=== PATIENT | male | born 1975 | race Caucasian/White ===

== ENCOUNTER 2018-11-29 22:08 | Inpatient (IN) | payer OTHER ==
[~2018-11-29] VITALS: Ht 182.9 cm; Wt 85.7 kg
[~2018-11-29 22:08] MED LIST: DILT180C73 PO; OMEP-218 PO; TRAZ50TA34 PO
[2018-11-29] MEDS ORDERED: NS(*) 0.9% 1000 ML BAG 1,000 ML IV ONE (22:19)
[2018-11-29] MEDS ORDERED: ONDANSETRON 4 MG/2 ML VIAL IVP ONE (22:20)
[2018-11-29] MEDS ORDERED: KETOROLAC 30 MG/ML VIAL IVP ONE (22:40)
[2018-11-29] MEDS ORDERED: fentaNYL CITR 100 MCG/2 ML AMP IVP ONE (22:40)
--- NOTE | 2018-11-29 22:43 | ER Report ---
History and Physical Time Seen By MD: 22:31 Hx. of Stated Complaint: ABDOMINAL PAIN THAT STARTED YESTERDAY, TODAY AT 0300 HE HAD DIARRHEA, HAS NOT PASSED GAS NOR HAD A BOWEL MOVEMENT SINCE THEN; SHARP CRAMPING IN ABD. AND LOWER RIGHT SIDED BACK/FLANK PAIN HPI/ROS CHIEF COMPLAINT: Vomiting and diarrhea HISTORY OF PRESENT ILLNESS: 43-year-old male presents with vomiting and diarrhea. He states he ate in [place]. Yesterday he began to have diarrhea last night. He got up this morning and had a cup coffee and then developed severe right upper quadrant cramping and pain to his back. He had several episodes of vomiting. He's been having continued cramping all day long. He's not had any more diarrhea. No fever or chills. Patient has no previous history of abdominal surgery. REVIEW OF SYSTEMS: Respiratory: No cough, no dyspnea. Cardiovascular: No chest pain, no palpitations. Gastrointestinal: As above Musculoskeletal: As above Allergies: Coded Allergies: No Known Drug Allergies (Unverified , 07/16/15) Home Meds Reported Medications Sertraline Hcl (ZOLOFT) 50 Mg Tablet, 1 TAB PO QDAY, TAB 11/30/18 Omeprazole Magnesium (PRILOSEC OTC) 20 Mg Tablet.dr, 2 TAB PO QDAY, TAB 03/01/15 Discontinued Scripts Diltiazem Hcl (DILTIAZEM 24HR ER) 180 Mg Cap.er.24h, 180 MG PO DAILY, #30 CAP.SR.24H Prov:LAQUITA LAWSON 07/16/15 Trazodone Hcl (TRAZODONE HCL) 50 Mg Tablet, 25 MG PO QHS, #10 TAB Prov:LAQUITA LAWSON 07/16/15 Hx Smoking: No Smoking Status: Never Smoker Hx Substance Use Disorder: No Hx Alcohol Use: Yes (5 DRINK 5-6 DAYS A WEEK) Constitutional Vital Sign - Last 24 Hours 11/29/18 11/29/18 11/29/18 11/29/18 22:30 22:31 22:38 22:42 Temp 98.2 Pulse 71 58 Resp 17 B/P (MAP) 132/95 (107) 132/95 119/88 (98) Pulse Ox 93 90 O2 Delivery Room Air 11/29/18 11/29/18 11/29/18 11/29/18 22:58 23:00 23:08 23:30 Pulse 52 B/P (MAP) 129/81 (97) 129/81 (97) Pulse Ox 98 O2 Flow Rate 2.0 11/29/18 11/30/18 11/30/18 11/30/18 23:38 00:00 00:08 00:30 Pulse 69 62 B/P (MAP) 135/83 (100) 126/80 (95) Pulse Ox 97 98 11/30/18 11/30/18 11/30/18 11/30/18 00:38 00:43 01:00 01:30 Pulse 65 58 B/P (MAP) 126/83 (97) 127/84 (98) Pulse Ox 96 96 11/30/18 11/30/18 02:00 02:13 Pulse 53 B/P (MAP) 124/87 (99) Pulse Ox 97 Physical Exam General Appearance: The patient is alert, has no immediate need for airway protection and no current signs of toxicity. Vital signs stable, afebrile HEENT: Pupils equal and round no injection. TMs normal, oropharynx without redness or exudate, mucous members are moist Respiratory: Chest is non tender, lungs are clear to auscultation. Cardiac: regular rate and rhythm Gastrointestinal: Abdomen is soft. Mild left upper quadrant tenderness, no rebound or guarding, no Rivera sign, no masses, bowel sounds normal. Musculoskeletal: Neck: Neck is supple and non tender. No lymphadenopathy Extremities have full range of motion and are non tender. Skin: No rashes or lesions. DIFFERENTIAL DIAGNOSIS: After history and physical exam differential diagnosis was considered for abdominal pain including but not limited to appendicitis, cholecystitis, gastroenteritis, food poisoning, viral syndrome gastritis and urinary tract infection. Additionally, flank pain including but not limited to musculoskeletal causes, kidney stone, pyelonephritis, shingles, and intra- abdominal causes such as diverticulitis and appendicitis. Medical Decision Making Data Points Result Diagram: 12/01/18 0502 12/01/18 0502 Laboratory Hematology Test 11/29/18 22:27 11/29/18 22:46 Urine Color Yellow Urine Clarity Clear Urine pH 6.0 pH (4.8-9.5) Urine Specific [place] 1.019 Urine Protein Negative mg/dL (NEGATIVE) Urine Glucose (UA) Negative mg/dL (NEGATIVE) Urine Ketones Trace mg/dL (NEGATIVE) Urine Blood Negative (NEGATIVE) Urine Nitrite Negative (NEGATIVE) Urine Bilirubin Negative (NEGATIVE) Urine Urobilinogen 2.0 mg/dL (0.2-1.9) Urine Leukocyte Esterase Negative (NEGATIVE) Urine RBC 1 /HPF (0-2/HPF) Urine WBC <1 /HPF (0-5/HPF) Urine Squamous Epithelial Cells None /LPF (</=FEW) Urine Bacteria Negative /HPF (NONE-FEW) Urine Mucus None /HPF (NONE-FEW) Amylase Level 820 U/L (0-110) Chemistry Test 11/29/18 22:27 11/29/18 22:46 Urine Color Yellow Urine Clarity Clear Urine pH 6.0 pH (4.8-9.5) Urine Specific [place] 1.019 Urine Protein Negative mg/dL (NEGATIVE) Urine Glucose (UA) Negative mg/dL (NEGATIVE) Urine Ketones Trace mg/dL (NEGATIVE) Urine Blood Negative (NEGATIVE) Urine Nitrite Negative (NEGATIVE) Urine Bilirubin Negative (NEGATIVE) Urine Urobilinogen 2.0 mg/dL (0.2-1.9) Urine Leukocyte Esterase Negative (NEGATIVE) Urine RBC 1 /HPF (0-2/HPF) Urine WBC <1 /HPF (0-5/HPF) Urine Squamous Epithelial Cells None /LPF (</=FEW) Urine Bacteria Negative /HPF (NONE-FEW) Urine Mucus None /HPF (NONE-FEW) Amylase Level 820 U/L (0-110) Urinalysis Test 11/29/18 22:27 Urine Color Yellow Urine Clarity Clear Urine pH 6.0 pH (4.8-9.5) Urine Specific [place] 1.019 Urine Protein Negative mg/dL (NEGATIVE) Urine Glucose (UA) Negative mg/dL (NEGATIVE) Urine Ketones Trace mg/dL (NEGATIVE) Urine Blood Negative (NEGATIVE) Urine Nitrite Negative (NEGATIVE) Urine Bilirubin Negative (NEGATIVE) Urine Urobilinogen 2.0 mg/dL (0.2-1.9) Urine Leukocyte Esterase Negative (NEGATIVE) Urine RBC 1 /HPF (0-2/HPF) Urine WBC <1 /HPF (0-5/HPF) Urine Squamous Epithelial Cells None /LPF (</=FEW) Urine Bacteria Negative /HPF (NONE-FEW) Urine Mucus None /HPF (NONE-FEW) EKG/Imaging Imaging Results: CT scan of the abdomen and pelvis with IV contrast was obtained. The results of the study are INDICATION: Abdominal pain, elevated lipase. COMPARISON: None. TECHNIQUE: Contrast enhanced abdomen and pelvis CT performed during the injection of 75 ml of Isovue 370. Sagittal and coronal reconstructions were performed. One of the following dose optimization techniques was utilized in the performance of this exam: Automated exposure control; adjustment of the mA a nd/or kV according to the patient's size; or use of an iterative reconstruction technique. Specific details can be referenced in the facility's radiology CT exam operational policy. FINDINGS: Lung bases: Clear. Liver and hepatic vasculature: Parenchyma is geographically hypoattenuating. No suspicious focal lesion. Gallbladder and bile ducts: Unremarkable. Spleen: Normal. Pancreas: The head and uncinate process appear heterogeneous, and there is a moderate amount of peripancreatic inflammation as well as fluid extending inferiorly along the retroperitoneum. The pancreatic body and tail appear grossly normal. No well-demonstrated suspicious focal lesion. Adjacent vasculature appears patent. Adrenals: Normal. Kidneys, ureters and bladder: Probable tiny cyst in the medial aspect of the left kidney on image 58 series 2. No hydronephrosis or hydroureter. Question urinary bladder wall thickening. Retroperitoneum and aorta: Nonaneurysmal aorta. Fluid extending inferiorly from the pancreas along the retroperitoneum. No adenopathy GI tract, mesentery and peritoneum: The duodenum appears inflamed adjacent to the pancreas. No evidence of obstruction. No pneumatosis or pneumoperitoneum. Prostate and seminal vesicles: Normal. Bones and soft tissues: No acute abnormality or suspicious lesion. Transitional lumbosacral vertebra. IMPRESSION: 1. Suspected pancreatitis involving the pancreatic head and uncinate process. No well-demonstrated focal lesion. There is inflammation of the adjacent duodenum that is likely reactive, though primary duodenitis is not excluded. 2. Question urinary bladder wall thickening, correlate with urinalysis. 3. Suspected hepatic steatosis. The study was read by the radiologist. I viewed the images myself on the PACS system. Results: Ultrasound of the gallbladder ultrasound was obtained. The results of the study are GALLBLADDER HISTORY: Pancreatitis. Evaluate for gallstone. COMPARISON: No prior ultrasound. There is a CT of the abdomen and pelvis from 11/29/2018. FINDINGS: Pancreas: Edematous. The peripancreatic fluid identified on CT is less well-visualized on ultrasound. Upper abdominal aorta and IVC: Aorta and IVC are patent by color Doppler and are unremarkable. Proximal aorta is 2.1 cm in cross-section. Liver: The liver is heterogeneously echogenic, compatible with geographic hepatic steatosis. The portal vein is patent with normal hepatopetal flow. Hepatic vein is patent. Gallbladder: No stones, wall thickening, or pericholecystic fluid. Negative sonographic Rivera sign. Common duct: Normal, measuring 5 mm. Right kidney: Normal in size and echogenicity. It measures 10.4 x 5.1 x 5.6 cm. No hydronephrosis. Resistive index is normal, measuring 0.5. Ascites: None. IMPRESSION: 1. Edematous pancreas, compatible with pancreatitis. 2. Normal gallbladder. 3. Hepatic steatosis. It can progress to steatohepatitis and eventual cirrhosis. The study was read by the radiologist. I viewed the images myself on the PACS system. ED Course/Re-evaluation Clinical Indication for ER IV: Hydration, IV Access ED Course Patient was admitted to an examination room. H&P was done. The differential diagnoses was considered. Patient with abdominal pain and right flank pain. Diagnostic evaluation was undertaken. Patient was treated with IV fluid hydration, Zofran, fentanyl, Toradol. Diagnostic studies returned with an elevated lipase of 4500. A CT scan of the abdomen and pelvis was performed. Patient will be admitted to medical service to monitor his lipase. 11/30/2018 12:35:39 am case discussed with Dr. Teo Dee hospitalist on- call Decision to Disposition Date: Nov 29, 2018 Decision to Disposition Time: 23:51 Depart Departure Latest Vital Signs Vital Signs Date Time Temp Pulse Resp B/P (MAP) Pulse Ox O2 Delivery O2 Flow Rate FiO2 11/30/18 02:13 53 97 11/30/18 02:00 124/87 (99) 11/29/18 22:58 2.0 11/29/18 22:31 98.2 17 Room Air Impression: Primary Impression: Pancreatitis Condition: Improved Disposition: Admitted from ER Referrals: MARLA PATEL DO (PCP) Problem Qualifiers Primary Impression: Pancreatitis Chronicity: acute Pancreatitis type: unspecified pancreatitis type Acute pancreatitis complication: no infection or necrosis Qualified Codes: K85.90 - Acute pancreatitis without necrosis or infection, unspecified NIMA KNOX DO Nov 29, 2018 22:42
[2018-11-29 22:57] LABS: PLATELET COUNT, AUTOMATED 271 K/uL (150-450)
[2018-11-29] MEDS ORDERED: IOPAMIDOL 76% 150 ML INFUS BTL 150 ML ONE (23:51)
[2018-11-30] VITALS (7 sets, daily range): BP systolic 122–149; BP diastolic 78–93; Ht 182.9 cm; Wt 85.7 kg
--- NOTE | 2018-11-30 00:25 | RADIOLOGY IMAGING REPORT ---
[facility] PATIENT NAME: Pete De Santiago : 1975 MR: [id number] V: [id number] EXAM DATE: [id number] ORDERING PHYSICIAN: NIMA KNOX TECHNOLOGIST: Location: [facility] - [place] Patient: Pete De Santiago : 1975 Visit/Account:[id number] Date of Sevice: 11/29/2018 COMPUTED TOMOGRAPHY ABDOMEN AND PELVIS WITH INTRAVENOUS CONTRAST DATE OF EXAM: 11/29/2018 11:37 PM INDICATION: Abdominal pain, elevated lipase. COMPARISON: None. TECHNIQUE: Contrast enhanced abdomen and pelvis CT performed during the injection of 75 ml of Isovue 370. Sagittal and coronal reconstructions were performed. One of the following dose optimization te chniques was utilized in the performance of this exam: Automated exposure control; adjustment of the mA and/or kV according to the patient's size; or use of an iterative reconstruction technique. Spec [facility] details can be referenced in the facility's radiology CT exam operational policy. FINDINGS: Lung bases: Clear. Liver and hepatic vasculature: Parenchyma is geographically hypoattenuating. No suspicious focal le coral. Gallbladder and bile ducts: Unremarkable. Spleen: Normal. Pancreas: The head and uncinate process appear heterogeneous, and there is a moderate amount of marilyn pancreatic inflammation as well as fluid extending inferiorly along the retroperitoneum. The pancrea tic body and tail appear grossly normal. No well-demonstrated suspicious focal lesion. Adjacent vas culature appears patent. Adrenals: Normal. Kidneys, ureters and bladder: Probable tiny cyst in the medial aspect of the left kidney on image 58 series 2. No hydronephrosis or hydroureter. Question urinary bladder wall thickening. Retroperitoneum and aorta: Nonaneurysmal aorta. Fluid extending inferiorly from the pancreas along the retroperitoneum. No adenopathy GI tract, mesentery and peritoneum: The duodenum appears inflamed adjacent to the pancreas. No evid ence of obstruction. No pneumatosis or pneumoperitoneum. Prostate and seminal vesicles: Normal. Bones and soft tissues: No acute abnormality or suspicious lesion. Transitional lumbosacral vertebr a. IMPRESSION: 1. Suspected pancreatitis involving the pancreatic head and uncinate process. No well-demonstrated focal lesion. There is inflammation of the adjacent duodenum that is likely reactive, though primary duodenitis is not excluded. 2. Question urinary bladder wall thickening, correlate with urinalysis. 3. Suspected hepatic steatosis. Report Dictated By: Wilbert Pastrana MD at 11/30/2018 12:10 AM Report E-Signed By: Wilbert Pastrana MD at 11/30/2018 12:21 AM WSN:[id number]
--- NOTE | 2018-11-30 01:47 | RADIOLOGY IMAGING REPORT ---
FACILITY: [facility] - [place] PATIENT NAME: Pete De Santiago : 1975 MR: [id number] V: [id number] EXAM DATE: ORDERING PHYSICIAN: NIMA KNOX TECHNOLOGIST: [place] [facility] [place]: Pete De Santiago : 1975 Visit/Account:[id number] Date of Sevice: 11/30/2018 GALLBLADDER HISTORY: Pancreatitis. Evaluate for gallstone. COMPARISON: No prior ultrasound. There is a CT of the abdomen and pelvis from 11/29/2018. FINDINGS: Pancreas: Edematous. The peripancreatic fluid identified on CT is less well-visualized on ultrasound. Upper abdominal aorta and IVC: Aorta and IVC are patent by color Doppler and are unremarkable. Proxim al aorta is 2.1 cm in cross-section. Liver: The liver is heterogeneously echogenic, compatible with geographic hepatic steatosis. The port al vein is patent with normal hepatopetal flow. Hepatic vein is patent. Gallbladder: No stones, wall thickening, or pericholecystic fluid. Negative sonographic Rivera sign. Common duct: Normal, measuring 5 mm. Right kidney: Normal in size and echogenicity. It measures 10.4 x 5.1 x 5.6 cm. No hydronephrosis. Re sistive index is normal, measuring 0.5. Ascites: None. IMPRESSION: 1. Edematous pancreas, compatible with pancreatitis. 2. Normal gallbladder. 3. Hepatic steatosis. It can progress to steatohepatitis and eventual cirrhosis. Report Dictated By: Precious Franklin at 11/30/2018 1:39 AM Report E-Signed By: Precious Franklin at 11/30/2018 1:44 AM WSN:[id number]
[2018-11-30] MEDS ORDERED: PROMETHAZINE 25 MG/ML 1 ML AMP IVP PRN (02:50)
[2018-11-30] MEDS ORDERED: MORPHINE 1 MG/ML 30 ML PCA IV PRN (02:50)
[2018-11-30] MEDS ORDERED: NALOXONE HCL 0.4 MG/ML VIAL IVP PRN (02:50)
[2018-11-30] MEDS ORDERED: SERT-1 PO (02:55)
[2018-11-30] MEDS: NS(*) 0.9% 1000 ML BAG 1,000 ML IV PRN ×3 (03:01→20:36)
--- NOTE | 2018-11-30 03:11 | History & Physical ---
History of Present Illness Chief Complaint Abdominal pain History of Present Illness 43yo male with PMHx significant for GERD and anxiety. He reports onset of some epigastric and RUQ pain begin approximately 24 hours before admission. He describes it as "crampy" pain. He had some associated nausea with vomiting early, but has now resolved. He also had a couple of loose/diarrheal (nonbloody/non-mucousy) stools which has also resolved. He had some low grade fever as well. No rashes. No urinary complaints. He had been drinking beer the night before (upwards of 6). He was evaluated in the ER and found to have evidence of acute pancreatitis on CT scan. His lipase was elevated to approximately 4500. He was recommended for admission. History Problems: (1) Anxiety Status: Chronic (2) GERD (gastroesophageal reflux disease) Status: Chronic Home Meds Reported Medications Sertraline Hcl (ZOLOFT) 50 Mg Tablet, 1 TAB PO QDAY, TAB 11/30/18 Omeprazole Magnesium (PRILOSEC OTC) 20 Mg Tablet.dr, 1 TAB PO BID, TAB 03/01/15 Discontinued Scripts Diltiazem Hcl (DILTIAZEM 24HR ER) 180 Mg Cap.er.24h, 180 MG PO DAILY, #30 CAP.SR.24H Prov:LAQUITA LAWSON [facility] 07/16/15 Trazodone Hcl (TRAZODONE HCL) 50 Mg Tablet, 25 MG PO QHS, #10 TAB Prov:LAQUITA LAWSON [facility] 07/16/15 Allergies: Coded Allergies: No Known Drug Allergies (Unverified , 07/16/15) Other Social/Family Hx He is and lives in [place]. He reports his primary relatives are healthy with no significant medical problems. Hx Smoking: No Smoking Status: Never Smoker Hx Alcohol Use: Yes (5 DRINK 5-6 DAYS A WEEK) Alcohol Used: Beer Review of Systems Constitutional: Fever Cardiovascular: No Chest Pain, No Palpitations Respiratory: No Shortness of Breath Gastrointestinal: Nausea, Vomiting, Diarrhea; No Hematemesis, No Hematochezia, No Melena; Abdominal Pain Genitourinary: No Dysuria, No Hematuria Musculoskeletal: No Impaired Mobility Psychiatric: Anxiety Exam Vital Signs Vital Signs Date Time Temp Pulse Resp B/P (MAP) Pulse Ox O2 Delivery O2 Flow Rate FiO2 11/30/18 02:43 56 97 11/30/18 02:30 140/92 (108) 11/29/18 22:58 2.0 11/29/18 22:31 98.2 17 Room Air General Appearance: Alert, Awake Neuro: No Gross deficits Eyes: PERRLA ENT: Oropharynx Clear Neck: No Masses Cardiovascular: Regular Rate and Rhythm, No Edema, No JVD Respiratory: Clear to Auscultation Chest: No Tenderness GI: Other (Fairly soft with some tenderness reported diffusely with palpation/BS persent/no masses or organomegally noted) : No CVA Tenderness Lymph: No Adenopathy Extremities: Warm, Perfused Integumentary: Skin Intact without Lesion / Mass Psych: Alert & Oriented X3 Medical Decision Making Data Points Result Diagram: 11/29/18224511/29/182245 Item Value Date Time Lipase 4555 U/L H 11/29/182245 Amylase Level 820 U/L H 11/29/182245 Albumin 5.1 g/dl H 11/29/18 2246 Total Protein 8.5 g/dl H 11/29/18 2246 Alkaline Phosphatase 67 U/L 11/29/18 2246 Alanine Aminotransferase (ALT/SGPT) 50 U/L 11/29/18 2246 Aspartate Amino Transf (AST/SGOT) 41 U/L H 11/29/18 2246 Total Bilirubin 1.1 mg/dl 11/29/18 2246 Calcium Level 9.9 mg/dl 11/29/18 2246 Urine Mucus None /HPF 11/29/182226 Urine Bacteria Negative /HPF 11/29/182226 Urine Squamous Epithelial Cells None /LPF 11/29/182226 Urine WBC <1 /HPF 11/29/187 Urine RBC 1 /HPF 11/29/18 222 Urine Leukocyte Esterase Negative 11/29/182226 Urine Urobilinogen 2.0 mg/dL 11/29/182226 Urine Bilirubin Negative 11/29/182226 Urine Nitrite Negative 11/29/182226 Urine Blood Negative 11/29/182226 Urine Ketones Trace mg/dL 11/29/182226 Urine Glucose (UA) Negative mg/dL 11/29/182226 Urine Protein Negative mg/dL 11/29/182226 Urine Specific [place] 1.019 11/29/182226 Urine pH 6.0 pH 11/29/182226 Urine Clarity Clear 11/29/182226 Urine Color Yellow 11/29/182226 EKG / Imaging Imaging PATIENT NAME: Pete De Santiago : 1975 MR: [id number] V: [id number] EXAM DATE: [id number] ORDERING PHYSICIAN: NIMA KNOX TECHNOLOGIST: Location: [facility] - [place], [place] Patient: Pete De Santiago : 1975 Visit/Account:[id number] Date of Sevice: 11/30/2018 GALLBLADDER HISTORY: Pancreatitis. Evaluate for gallstone. COMPARISON: No prior ultrasound. There is a CT of the abdomen and pelvis from 11/29/2018. FINDINGS: Pancreas: Edematous. The peripancreatic fluid identified on CT is less well- visualized on ultrasound. Upper abdominal aorta and IVC: Aorta and IVC are patent by color Doppler and are unremarkable. Proximal aorta is 2.1 cm in cross-section. Liver: The liver is heterogeneously echogenic, compatible with geographic hepatic steatosis. The portal vein is patent with normal hepatopetal flow. Hepatic vein is patent. Gallbladder: No stones, wall thickening, or pericholecystic fluid. Negative sonographic Rivera sign. Common duct: Normal, measuring 5 mm. Right kidney: Normal in size and echogenicity. It measures 10.4 x 5.1 x 5.6 cm. No hydronephrosis. Resistive index is normal, measuring 0.5. Ascites: None. IMPRESSION: 1. Edematous pancreas, compatible with pancreatitis. 2. Normal gallbladder. 3. Hepatic steatosis. It can progress to steatohepatitis and eventual cirrhosis. Report Dictated By: Precious Franklin at 11/30/2018 1:39 AM Report E-Signed By: Precious Franklin at 11/30/2018 1:44 AM WSN:[id number] PATIENT NAME: Pete De Santiago : 1975 MR: [id number] V: [id number] EXAM DATE: [id number] ORDERING PHYSICIAN: NIMA KNOX TECHNOLOGIST: Location: [facility] - [place], [place] Patient: Pete De Santiago : 1975 Visit/Account:[id number] Date of Sevice: 11/29/2018 COMPUTED TOMOGRAPHY ABDOMEN AND PELVIS WITH INTRAVENOUS CONTRAST DATE OF EXAM: 11/29/2018 11:37 PM INDICATION: Abdominal pain, elevated lipase. COMPARISON: None. TECHNIQUE: Contrast enhanced abdomen and pelvis CT performed during the injection of 75 ml of Isovue 370. Sagittal and coronal reconstructions were performed. One of the following dose optimization techniques was utilized in the performance of this exam: Automated exposure control; adjustment of the mA and/or kV according to the patient's size; or use of an iterative reconstruction technique. Specific details can be referenced in the facility's radiology CT exam operational policy. FINDINGS: Lung bases: Clear. Liver and hepatic vasculature: Parenchyma is geographically hypoattenuating. No suspicious focal lesion. Gallbladder and bile ducts: Unremarkable. Spleen: Normal. Pancreas: The head and uncinate process appear heterogeneous, and there is a moderate amount of peripancreatic inflammation as well as fluid extending inferiorly along the retroperitoneum. The pancreatic body and tail appear grossly normal. No well-demonstrated suspicious focal lesion. Adjacent vasculature appears patent. Adrenals: Normal. Kidneys, ureters and bladder: Probable tiny cyst in the medial aspect of the left kidney on image 58 series 2. No hydronephrosis or hydroureter. Question urinary bladder wall thickening. Retroperitoneum and aorta: Nonaneurysmal aorta. Fluid extending inferiorly from the pancreas along the retroperitoneum. No adenopathy GI tract, mesentery and peritoneum: The duodenum appears inflamed adjacent to the pancreas. No evidence of obstruction. No pneumatosis or pneumoperitoneum. Prostate and seminal vesicles: Normal. Bones and soft tissues: No acute abnormality or suspicious lesion. Transitional lumbosacral vertebra. IMPRESSION: 1. Suspected pancreatitis involving the pancreatic head and uncinate process. No well-demonstrated focal lesion. There is inflammation of the adjacent duodenum that is likely reactive, though primary duodenitis is not excluded. 2. Question urinary bladder wall thickening, correlate with urinalysis. 3. Suspected hepatic steatosis. Report Dictated By: Wilbert Pastrana MD at 11/30/2018 12:10 AM Report E-Signed By: Wilbert Pastrana MD at 11/30/2018 12:21 AM WSN:[id number] Assessment and Plan Problems: (1) Acute pancreatitis Status: Acute Assessment & Plan: Most likely due to alcohol. Will admit and place his gut at rest - NPO. Will give generous IV fluids. Will place on IV analgesics and antiemetics as needed. Will watch closely and modify therapy if needed. (2) GERD (gastroesophageal reflux disease) Status: Chronic Assessment & Plan: Will continue on PPI therapy with IV Protonix (at least initially). (3) Anxiety Status: Chronic Assessment & Plan: Will need to hold his sertraline for now. Copies to: MARLA PATEL DO ; Venous Thromboembolism Antithrombotics Is Pt On Any Antithrombotics?: Yes Exam Sepsis Risk: No Definite Risk HONG CARNES MD Nov 30, 2018 03:11
[2018-11-30] MEDS ORDERED: PCA LOCKBOX KEYS XX ONE ×2 (03:19→21:42)
[2018-11-30] MEDS: MORPHINE 1 MG/ML 30 ML PCA IV PRN ×2 (03:39→21:48)
[2018-11-30 06:27] LABS: PLATELET COUNT, AUTOMATED 216 K/uL (150-450)
[2018-11-30] MEDS: PANTOPRAZOLE SOD 40 MG IV VIAL IVP SCH (09:29)
[2018-11-30] MEDS: ENOXAPARIN 40 MG/0.4ML SYR SC SCH (09:29)
--- NOTE | 2018-11-30 10:54 | Hospitalist Progress Note ---
Subjective Progress Notes Subjective He was admitted with acute pancreatitis. He does have complaints of abdominal cramping. Patient Complains of: Cardiovascular: No: Chest Pain Respiratory: No: Shortness of Breath Physical Exam Vital Signs Date Time Temp Pulse Resp B/P (MAP) Pulse Ox O2 Delivery O2 Flow Rate FiO2 11/30/18 07:03 98.6 56 16 127/83 (98) 89 Room Air 11/29/18 22:58 2.0 General Appearance: Alert, Awake, No Acute Distress, Afebrile Neuro: No Gross deficits Cardiovascular: Regular Rate and Rhythm Respiratory: No Respiratory Distress, Clear to Auscultation GI: Other (pain to palpation) Extremities: Warm, Perfused; No Edema Psych: Alert & Oriented X3, Appropriate Mood & Affect Result Diagram: 11/30/1860611/30/18606 Assessment and Plan Problems: (1) Acute pancreatitis Status: Acute Assessment & Plan: Most likely due to alcohol. Will admit and place his gut at rest - NPO. Will give IV fluids. Will place on IV analgesics and antiemetics as needed. Will watch closely and modify therapy if needed. Lipase reduced since admission, recheck tomorrow. (2) GERD (gastroesophageal reflux disease) Status: Chronic Assessment & Plan: Will continue on PPI therapy with IV Protonix (at least initially). (3) Anxiety Status: Chronic Assessment & Plan: Will need to hold his sertraline for now. He is concerned about withdraw. He will likely resume this afternoon. Exam Sepsis Risk: No Definite Risk VIKAS ATKINSP Nov 30, 2018 10:54
--- NOTE | 2018-11-30 14:37 | Medical Nutrition Therapy ---
Nutrition Anthropometrics Height (Inches): 72.00 Height (Calculated Centimeters: [phone] Weight (Pounds): 189 Weight (Calculated Kilograms): 85.746 BMI: 25.6 Chung Nutrition Score: Probably Inadequate Chung Nutrition Risk Score: 21 Dietary Referral Nutrition Risk Factors: Nutrition Risk Comment: Physical Findings Physical Appearance: Overweight BMI 25-29 Skin Appearance Skin Appearance: Edema Edema Location Modifier: Edema Location: Type of Edema: Degree of Edema: Gastrointestinal Symptoms GI Symtoms: Nausea, Vomiting, Diarrhea Tube Present: Bowel Sounds: Recent Bowel Pattern: Diarrhea Stool Characteristics: Nutritional Diagnosis Nutritional Risk Acuity 2: Pancreatitis Nutritional Risk Acuity 3: GERD Past Medical History: GERD, anxiety Nutritional Acuity: 2-Moderate Nutrition Diagnosis: Inadequate Food Intake Nutrition Etiology: Physiological Causes Nutrition Problem/Etiology/Sym: Inadeuqate meal intake related to physiological causes as evidence by NPO diet day 1. Energy Requirement: 2364 (MSJ, 1.1 TEF, 1.2 AF) Protein Requirement: 86 (1 g AA/kg of BW) Fluid Requirement: 2364 (1ml/kcal) Diet Type: NPO (Nothing by Mouth) Nutrition Intervention: Incr diet as tolerated Nutritional Needs Comment: 11/02: NPO day 1 Nutrition Monitoring & Eval RD Patient Assessment Time: [address] Assessment Type: RD Assessment Patient Nutrition Acuity: 2-Moderate Follow Up Date: Dec 03, 2018 Nutritional Comment: 11/30: Pt admitted for acute pancreatitis and GERD. Pt has hx of GERD and depression. Pt is currently taking enoxaparin. Pt has elevated total bilirubin (1.4), lipase (5535-7880), and amylase (820). Pt is NPO day 1. Continue to monitor. -KIRSTIE [place] Nov 30, 2018 10:52
[2018-11-30] MEDS ORDERED: SERTRALINE HCL 50 MG TAB PO SCH (18:30)
[2018-12-01 03:14] VITALS: BP 126/82
[2018-12-01 05:54] LABS: PLATELET COUNT, AUTOMATED 189 K/uL (150-450)
[2018-12-01] MEDS: NS(*) 0.9% 1000 ML BAG 1,000 ML IV PRN (06:34)
[2018-12-01 07:20] VITALS: BP 127/75
[2018-12-01] MEDS: ENOXAPARIN 40 MG/0.4ML SYR SC SCH (08:52)
[2018-12-01] MEDS: PANTOPRAZOLE SOD 40 MG IV VIAL IVP SCH (08:52)
--- NOTE | 2018-12-01 10:10 | Hospitalist Progress Note ---
Subjective Progress Notes Subjective He was admitted with acute pancreatitis. His lipase levels have reduced this morning. He reports only minimal abdominal cramping, much improvement since yesterday. Patient Complains of: Respiratory: No: Shortness of Breath Physical Exam Vital Signs Date Time Temp Pulse Resp B/P (MAP) Pulse Ox O2 Delivery O2 Flow Rate FiO2 12/01/18 09:01 87 12/01/18 07:25 10 12/01/18 07:20 98.9 56 127/75 (92) 12/01/18 03:14 Nasal Cannula 1.5 Intake and Output 12/01/18 07:00 Intake Total 1000 ml Balance 1000 ml Intake IV Total 1000 ml # Voids 3 General Appearance: Alert, Awake, No Acute Distress, Afebrile Neuro: No Gross deficits Cardiovascular: Regular Rate and Rhythm Respiratory: No Respiratory Distress, Clear to Auscultation GI: Soft and Non-Tender Psych: Alert & Oriented X3, Appropriate Mood & Affect Result Diagram: 12/01/18 0502 12/01/18 0502 Assessment and Plan Problems: (1) Acute pancreatitis Status: Acute Assessment & Plan: Most likely due to alcohol. He was placed on NPO status upon admission. He is receiving IV fluids, IV analgesics and antiemetics as needed. Will watch closely and modify therapy if needed. Lipase reduced since admission, will attempt to advance to clear liquid diet this morning. (2) GERD (gastroesophageal reflux disease) Status: Chronic Assessment & Plan: Will continue on PPI therapy with IV Protonix (at least initially). (3) Anxiety Status: Chronic Assessment & Plan: He is on chronic treatment with sertraline. This was resumed 11/30. Exam Sepsis Risk: No Definite Risk VIKAS ATKINS PHYSICIAN OPHTHALMOLOGIST Dec 01, 2018 10:10
[2018-12-01 11:07] VITALS: BP 124/91
[2018-12-01] MEDS ORDERED: SERTRALINE HCL 50 MG TAB PO SCH (13:00)
[2018-12-01 17:08] VITALS: BP 120/85
[2018-12-01] MEDS: oxyCODONE HCL 5 MG CAP PO PRN (18:12)
[2018-12-01 18:45] VITALS: BP 131/87
[2018-12-02] MEDS: oxyCODONE HCL 5 MG CAP PO PRN ×2 (00:10→06:25)
[2018-12-02 00:12] VITALS: BP 133/86
[2018-12-02 05:46] VITALS: BP 131/81
[2018-12-02 06:24] LABS: PLATELET COUNT, AUTOMATED 195 K/uL (150-450)
[2018-12-02] MEDS ORDERED: OXYC5TAB38 PO (08:29)
[2018-12-02] MEDS ORDERED: PROM12.556 PO (08:29)
--- NOTE | 2018-12-02 08:35 | Hospitalist Depart ---
Discharge Summary Reason for Hosp/Final Diag: (1) Acute pancreatitis Status: Acute Hospital Course & Plan: Most likely due to alcohol. He was placed on NPO status upon admission. He is receiving IV fluids, IV analgesics and antiemetics as needed. Lipase reduced since admission. He did eat low fat meal yesterday and this morning without pain. He will follow up with PCP next week. He will follow low fat diet and avoid alcohol. (2) GERD (gastroesophageal reflux disease) Status: Chronic Hospital Course & Plan: Will continue on PPI therapy. (3) Anxiety Status: Chronic Hospital Course & Plan: He is on chronic treatment with sertraline. This was resumed 11/30. (4) Nocturnal hypoxia Status: Acute Hospital Course & Plan: He will be sent home with nocturnal oxygen. He will follow up with PCP in one week. Departure Latest Vital Signs Vital Signs 12/02/18 05:46 Temp 98.2 Pulse 59 Resp 18 B/P (MAP) 131/81 (98) Pulse Ox 94 O2 Delivery Nasal Cannula O2 Flow Rate 0.5 Weight (Pounds): 189 Weight (Ounces): 0.6 Result Diagram: 12/02/18 0557 12/02/18 0557 Condition: Improved Discharge: Home, Self Care Discharge Instructions Home Meds Active Scripts Promethazine Hcl (PROMETHAZINE HCL) 12.5 Mg Tablet, 12.5 MG PO Q6H, #12 TAB Prov:VIKAS ATKINS [facility] 12/02/18 Oxycodone Hcl (OXYCODONE HCL) 5 Mg Tablet, 5-10 MG PO Q6H PRN for PAIN, #20 TAB Prov:VIKAS ATKINS [facility] 12/02/18 Reported Medications Sertraline Hcl (ZOLOFT) 50 Mg Tablet, 1 TAB PO QDAY, TAB 11/30/18 Omeprazole Magnesium (PRILOSEC OTC) 20 Mg Tablet.dr, 2 TAB PO QDAY, TAB 03/01/15 Discontinued Scripts Diltiazem Hcl (DILTIAZEM 24HR ER) 180 Mg Cap.er.24h, 180 MG PO DAILY, #30 CAP.SR.24H Prov:LAQUITA LAWSON [facility] 07/16/15 Trazodone Hcl (TRAZODONE HCL) 50 Mg Tablet, 25 MG PO QHS, #10 TAB Prov:LAQUITA LAWSON [facility] 07/16/15 Diet: Low Fat Activity: As Tolerated Special Instructions: Follow Low Fat Diet. Follow up with primary care provider in one week. Do not drink alcohol. Take narcotic pain medication only if needed. Copies to: MARLA PATEL DO ; Venous Thromboembolism Antithrombotics Is Pt On Any Antithrombotics?: Yes VIKAS ATKINS FOOT SPECIALIST Dec 02, 2018 08:35
[2018-12-02] MEDS ORDERED: PANTOPRAZOLE SOD 40 MG TABEC PO SCH (09:00)
[2018-12-02 09:01] VITALS: BP 120/68
[2018-12-02] MEDS: ENOXAPARIN 40 MG/0.4ML SYR SC SCH (09:05)
== END 2018-12-02 10:06 | disposition home or self-care (01) | DRG 440 ==
LOC: ER 22:30 → MED 11-30 02:15
PROVIDERS: ADMIT Internal Medicine; ATTEND Internal Medicine
DX: K85.20 Alcohol induced acute pancreatitis without necrosis or infection (principal); K21.9 Gastro-esophageal reflux disease without esophagitis; F41.9 Anxiety disorder, unspecified; G47.34 Idiopathic sleep related nonobstructive alveolar hypoventilation
CPT/HCPCS: 36415; 74177; 76705; 81001; 82040; 82150; 82247; 82310; 82374; 82435; 82565; 82947; 83690; 84075; 84132; 84155; 84295; 84450; 84460; 84478; 84520; 85025; 96374; 96375; 99284; C9113; J1650; J1885; J2270; J2405; J3010; J7030; Q9967